=== PATIENT | female | born 1985 | race Caucasian/White ===

== ENCOUNTER 2018-10-04 08:20 | Emergency (ER) | payer OTHER ==
[~2018-10-04] VITALS: Ht 157.5 cm; Wt 81.8 kg
[2018-10-04 08:22] VITALS: Ht 157.5 cm; Wt 81.8 kg
[2018-10-04] MEDS ORDERED: SODIUM CHLORIDE 0.9% 1L BAG IV* STA (08:34)
[2018-10-04] MEDS ORDERED: ACETAMINOPHEN 325 MG TAB PO STA (08:34)
[2018-10-04] MEDS ORDERED: OSEL75CA23 PO (09:21)
--- NOTE | 2018-10-04 09:24 | ERD ---
ER Documentation Chief Complaint Chief Complaint FEVER/ SOB/ COUGH/ HEADACHE/ CHEST CONGESTION HPI 33-year-old female presents the emergency department complaining of fever. Patient states that she had the acute onset of fever myalgias with upper respiratory nasal congestion and a cough. She denies any shortness of breath. She reports nausea but no vomiting. She reports no urinary symptoms or diarrhea. ROS All systems reviewed and are negative except as per history of present illness. Medications Home Meds Active Scripts Oseltamivir Phosphate* (Tamiflu*) 75 Mg Capsule, 75 MG PO BID for 5 Days, CAP Prov:NIIMONICA 10/04/18 Allergies Allergies: Coded Allergies: No Known Allergy (Unverified , 10/04/18) PMhx/Soc History of Surgery: Yes (BACK SX) Anesthesia Reaction: No Hx Neurological Disorder: No Hx Respiratory Disorders: No Hx Cardiac Disorders: No Hx Psychiatric Problems: No Hx Miscellaneous Medical Probl: No Hx Alcohol Use: No Hx Substance Use: No Hx Tobacco Use: No Smoking Status: Never smoker FmHx Noncontributory for chief complaint Physical Exam Vitals Vital Signs Date Temp Pulse Resp B/P (MAP) Pulse Ox O2 O2 Flow FiO2 Time Delivery Rate 10/04/18 101.0 08:52 10/04/18 102.2 129 28 154/83 100 08:22 (106) Physical Exam GENERAL: The patient is well developed and appropriate for usual state of health in no apparent distress HEENT: Pupils equal, round, and reactive to light. EOMI. There is no scleral icterus. NECK: C-spine is soft and supple, there is no meningismus. There is no cervical lymphadenopathy. LUNGS: Clear to auscultation bilaterally. There are no rales, wheezes or rhonchi. HEART: Regular rate and rhythm, no murmurs, clicks, rubs or gallops. ABDOMEN: Soft, non-tender, non-distended. There are bowel sounds in all four quadrants. No rebound or guarding. EXTREMITIES: There is no peripheral cyanosis or edema. No focal swelling or erythema. NEURO: The patient moves all four extremities with 5/5 strength. Cranial nerves II - XII are intact. Normal gait. Alert and oriented SKIN: There is no apparent rash or petechiae. HEME/LYMPHATIC: There is no evidence of excessive bruising or lymphedema. PSYCHIATRIC: The patient does not appear anxious or depressed. Result Diagram: 10/04/1844 10/04/1844 Results 24 hrs Laboratory Tests Test 10/04/18 08:44 White Blood Count 9.2 10^3/ul Red Blood Count 4.43 10^6/ul Hemoglobin 12.1 g/dl Hematocrit 36.2 % Mean Corpuscular Volume 81.7 fl Mean Corpuscular Hemoglobin 27.3 pg Mean Corpuscular Hemoglobin Concent 33.4 g/dl Red Cell Distribution Width 12.2 % Platelet Count 316 10^3/UL Mean Platelet Volume 10.1 fl Immature Granulocytes % 0.700 % Neutrophils % 85.3 % Lymphocytes % 5.8 % Monocytes % 7.5 % Eosinophils % 0.4 % Basophils % 0.3 % Nucleated Red Blood Cells % 0.0 /100WBC Immature Granulocytes # 0.060 10^3/ul Neutrophils # 7.9 10^3/ul Lymphocytes # 0.5 10^3/ul Monocytes # 0.7 10^3/ul Eosinophils # 0.0 10^3/ul Basophils # 0.0 10^3/ul Nucleated Red Blood Cells # 0.0 10^3/ul Sodium Level 136 mmol/L Potassium Level 4.1 mmol/L Chloride Level 103 mmol/L Carbon Dioxide Level 21 mmol/L Anion Gap 12 Blood Urea Nitrogen 12 mg/dl Creatinine 0.75 mg/dl Est Glomerular Filtrat Rate mL/min > 60 mL/min Glucose Level 115 mg/dl Calcium Level 9.6 mg/dl Total Bilirubin 0.4 mg/dl Direct Bilirubin 0.00 mg/dl Indirect Bilirubin 0.4 mg/dl Aspartate Amino Transf (AST/SGOT) 25 IU/L Alanine Aminotransferase (ALT/SGPT) 27 IU/L Alkaline Phosphatase 102 IU/L Troponin I Pending Total Protein 7.6 g/dl Albumin 4.7 g/dl Globulin 2.90 g/dl Albumin/Globulin Ratio 1.62 Current Medications Medications Dose Sig/Cara Start Time Status Last (Trade) Ordered Route PRN Stop Time Admin Dose Reason Admin Sodium 2,450 ml BOLUS OVER 2 10/04/18 DC 10/04/18 Chloride HOURS STAT 08:34 10/04/18 08:53 (NS) IV* 08:36 650 mg ONCE STAT 10/04/18 DC 10/04/18 Acetaminophen PO 08:34 10/04/18 08:52 (Tylenol 08:36 Tab) Procedures/MDM Patient was taken to a room, seen and evaluated. Comfort measures were initiated. Diagnostic tests were ordered and reviewed. 3 LEAD RHYTHM STRIP: [Normal sinus rhythm without ectopy] RADIOLOGY: [reviewed with the radiologist] REEVALUATION: 0920: Diagnostic tests were appreciated and arrangements made for outpatient care MED[employer] DECISION MAKIN-year-old female presents the emergency department with symptoms consistent with a flulike illness. At this time, patient's clinical examination and overall presentation do not indicate that she is septic, hypoxic or has any evidence of other high risk features. As she is 24 hours in, the Tamiflu should be beneficial. Patient appears clinically nontoxic and appropriate for discharge at this time. Departure Diagnosis: Primary Impression: Influenza Condition: Stable Patient Instructions: Influenza (Adult) MONICA BALES Oct 04, 2018 09:23
[2018-10-04 09:44] VITALS: BP 117/87; PULSE 98; RESP 18
== END 2018-10-04 10:15 | disposition home or self-care (01) ==
LOC: E/R 08:20
DX: J10.1 Influenza due to other identified influenza virus with other respiratory manifestations (principal); R40.2142 Coma scale, eyes open, spontaneous, at arrival to emergency department; R40.2362 Coma scale, best motor response, obeys commands, at arrival to emergency department; R40.2252 Coma scale, best verbal response, oriented, at arrival to emergency department
CPT/HCPCS: 71045; 80053; 84484; 85025; 87040; 87400; J7030; Z7610; 36415